=== PATIENT | male | born 2000 | race Caucasian/White ===

== ENCOUNTER 2022-07-18 14:29 | Emergency (ER) | payer OTHER, SELFPAY ==
--- NOTE | 2022-07-18 14:35 | ED.URI ---
HPI - URI/Sore Throat General Chief Complaint: Upper Respiratory Infection Stated Complaint: sinus pressure ears congestion Source: patient and RN notes reviewed History of Present Illness HPI Narrative: 22 yo M presents to urgent care with complaints of body aches, vomiting, cough, congestion, ear pain, and sore throat with coughing. Pt states he has been having these symptoms since Thursday. Pt states he is able to keep fluids down. Denies any diarrhea, chest pain, or abdominal pain. Reports SOB with exertion earlier in the week. Related Data Allergies Allergy/AdvReac Type Severity Reaction Status Date / Time No Known Allergies Allergy Unverified 07/18/22 14:54 Review of Systems Review of Systems: Pertinent positives and pertinent negatives per HPI. PMFSH Comments At the time of my signature, I reviewed and agree with the nursing past medical, surgical, social, and family history. There is no relevant family history pertinent to the patient complaint. Exam Narrative: GENERAL: This is a well-nourished, well-developed patient, in no apparent distress. HEAD: normocephalic, atraumatic. EYES: Sclera clear/white. Vision is grossly intact. EARS: External ears normal, auditory canals clear and without drainage, TMs normal without perforation. Hearing grossly intact. NOSE: External nose normal with no obvious nasal discharge, nares without redness, no rhinorrhea. THROAT: Mucous membranes moist, posterior pharynx erythremic. Tonsils 2+ bilaterally, no exudate. NECK: Neck supple, non-tender without lymphadenopathy, masses or thyromegaly. CARDIOVASCULAR: Regular rate and rhythm without murmurs, gallops, or rubs. RESPIRATORY: rhonchi and mild wheezing throughout. GASTROINTESTINAL: Abdomen soft, non-tender, nondistended. Bowel sounds are active. No hepato-splenomegaly, or palpable masses. No guarding. SKIN: pale NEURO: awake, alert, and oriented to person, place and time. There were no obvious focal neurologic abnormalities. Course Course Level of Care: Express Care Visit Vital Signs Vital signs: Vital Signs Temperature 98.9 F 07/18/22 14:45 Pulse Rate 80 07/18/22 14:45 Respiratory Rate 18 07/18/22 14:45 Blood Pressure 125/72 07/18/22 14:45 Pulse Oximetry 98 07/18/22 14:45 Oxygen Delivery Room Air 03/31/23 14:45 Temperature 98.9 F 07/18/22 14:45 Pulse Rate 80 07/18/22 14:45 Respiratory Rate 18 07/18/22 14:45 Blood Pressure 125/72 07/18/22 14:45 Pulse Oximetry 98 07/18/22 14:45 Oxygen Delivery Room Air 07/18/22 14:45 reviewed. MDM - URI/Sore Throat MDM Narrative Medical decision making narrative: After 24 hours on antibiotics throw tooth brush away and start using a new one. Increase your Vitamin C. Increase your Vitamin D by getting at least 15 minutes of sunlight every day. Do not share drinks. Take Motrin alternating with Tylenol for pain and/or fever alternating every 4 hours. Increase fluids, avoid caffeine. Take a probiotic daily or eat a low sugar yogurt while taking the antibiotic. Follow up with Primary provider if not getting better this week Differential Diagnosis Differential diagnosis: Likely upper respiratory infection, otitis media and pharyngitis Lab Data Attestation: I reviewed the patient's lab results. Critical Care Time Critical Care Time Critical Care Time: No Discharge Plan Discharge Clinical Impression: Pharyngitis Qualifiers: Pharyngitis/tonsillitis etiology: streptococcus Qualified Code(s): J02.0 - Streptococcal pharyngitis Patient Disposition: Home, Self-Care Condition: Stable Instructions: Antibiotic Form, Strep Throat (DC) Additional Instructions: After 24 hours on antibiotics throw tooth brush away and start using a new one. Increase your Vitamin C. Increase your Vitamin D by getting at least 15 minutes of sunlight every day. Do not share drinks. Take Motrin alternating with Tylenol for pain and/or fever alternating ever
[2022-07-18 14:45] VITALS: BP 125/72; PULSE 80; RESP 18; TEMP 37.2; O2SAT 98
== END 2022-07-18 15:25 | disposition home or self-care (01) ==
PROVIDERS: Emergency Provider Nurse Practitioner Family; PCP Emergency Medicine
DX: J02.0 Streptococcal pharyngitis (principal)
CPT/HCPCS: 87880; 99203; G0463

== ENCOUNTER 2023-03-02 16:51 | Emergency (ER) | payer OTHER, SELFPAY ==
[2023-03-02 17:05] VITALS: BP 113/68; PULSE 84; RESP 16; TEMP 37.3; O2SAT 99
--- NOTE | 2023-03-02 18:02 | ED.URI ---
HPI - URI/Sore Throat General Chief Complaint: Upper Respiratory Infection Stated Complaint: sore throat,stomach issue,congestion,tired Time Seen by Provider: 03/02/23 17:56 Source: patient and RN notes reviewed Mode of arrival: ambulatory Limitations: no limitations History of Present Illness HPI Narrative: Patient presents today complaining of sore throat, congestion, body aches, fatigue since last night. Denies fever. Reports after smoking some marijuana and eating upon my grand at he started feeling better today. He is currently pain-free. States he came in today because he needs a work note to return to work tomorrow. Related Data Allergies Allergy/AdvReac Type Severity Reaction Status Date / Time tree nut Allergy Unknown Unknown Unverified 03/02/23 17:29 Review of Systems Review of Systems: CONSTITUTIONAL: Denies fever, chills, or sweats.+ body aches, fatigue EYES: Denies visual changes, redness, or discharge. ENT: Denies rhinorrhea, or otalgia.+ sore throat, congestion CARDIOVASCULAR: Denies chest pain, palpitations, or edema. RESPIRATORY: Denies cough or dyspnea. GASTROINTESTINAL: Denies abdominal pain, nausea, vomiting, or diarrhea. GENITOURINARY: Denies dysuria or hematuria. SKIN: Denies rash, itching, or wounds. MUSCULOSKELETAL: Denies back pain, joint pain, or myalgia. NEUROLOGIC: Denies headache, numbness, tingling, or weakness. PSYCH: Denies depression or anxiety. PMFSH Comments At time of signature, I have reviewed and agree with nursing past medical, surgical, social and family history unless otherwise noted. Please see nursing chart for further information. There is no relevant family history pertinent to the presenting complaint Exam Narrative: GENERAL: Well-appearing, well-nourished, and in no acute distress. HEAD: Normocephalic, atraumatic. EYES: EOMI. No redness or drainage. Conjunctivae normal. ENT: Mucous membranes pink and moist. Nares clear. No rhinorrhea. TMs normal bilaterally. Throat normal. Uvula midline. NECK: Normal AROM. Supple. No lymphadenopathy. CHEST: No respiratory distress. Clear to auscultation. HEART: Regular rate and rhythm. No murmur appreciated. EXTREMITIES: Normal range of motion. No edema. SKIN: Warm, dry, no rash. Capillary refill normal. Normal skin turgor. NEURO: No focal deficits. Alert and oriented x3. Gait steady. PSYCH: Normal affect. No signs of depression or anxiety. Course Course Level of Care: Express Care Visit Vital Signs Vital signs: Vital Signs Temperature 99.1 F 03/02/23 17:05 Pulse Rate 84 03/02/23 17:05 Respiratory Rate 16 03/02/23 17:05 Blood Pressure 113/68 03/02/23 17:05 Pulse Oximetry 99 03/02/23 17:05 Oxygen Delivery Room Air 03/02/23 17:05 Temperature 99.1 F 03/02/23 17:05 Pulse Rate 84 03/02/23 17:05 Respiratory Rate 16 03/02/23 17:05 Blood Pressure 113/68 03/02/23 17:05 Pulse Oximetry 99 03/02/23 17:05 Oxygen Delivery Room Air 03/02/23 17:05 Reviewed MDM - URI/Sore Throat MDM Narrative Medical decision making narrative: Patient's symptoms are likely viral in etiology. Patient declines testing. Discussed [id number] treatment for symptoms. No prescription medications indicated at this time. Anticipatory guidance given. Differential Diagnosis Differential diagnosis: Likely upper respiratory infection, viral infection and pharyngitis Critical Care Time Critical Care Time Critical Care Time: No Discharge Plan Discharge Clinical Impression: Upper respiratory infection Qualifiers: URI type: unspecified URI Qualified Code(s): J06.9 - Acute upper respiratory infection, unspecified Patient Disposition: Home, Self-Care Condition: Stable Instructions: Upper Respiratory Infection (DC) Additional Instructions: Your symptoms are likely due to a viral illness, which is not treated with antibiotics. Virus symptoms can last for up to 7-10 days. Take Tyleno
== END 2023-03-02 18:15 | disposition home or self-care (01) ==
PROVIDERS: Emergency Provider Nurse Practitioner
DX: J06.9 Acute upper respiratory infection, unspecified (principal)
CPT/HCPCS: 99211; G0463

== ENCOUNTER 2024-12-05 15:30 | Emergency (ER) | payer OTHER, SELFPAY ==
[2024-12-05 15:40] VITALS: BP 147/84; PULSE 71; RESP 16; TEMP 36.7; O2SAT 99
--- NOTE | 2024-12-05 15:58 | ED_ITS ---
HPI - Skin/Abscess/Foreign Bdy General Chief complaint: Skin/Abscess/Foreign Body Stated complaint: body rash Time Seen by Provider: 12/05/24 15:45 Source: patient and RN notes reviewed Mode of arrival: ambulatory Limitations: no limitations History of Present Illness HPI narrative: 24-year-old male presents Express Care complaining of rash to his right elbow and chest the last 2 days. Patient says the rash started spontaneously. Patient denies any recent yd work or pain outside. Patient reports a pruritic rash started on his right elbow and has spread to his right lower arm and a throughout his chest and abdomen. Patient denies other symptoms. Patient has been Using hydrocortisone without any relief. Patient denies any pain. Related Data Allergies Allergy/AdvReac Type Severity Reaction Status Date / Time tree nut Allergy Unknown Unknown Unverified 03/02/23 17:29 Review of Systems Review of Systems: CONSTITUTIONAL: Denies fever, chills, or sweats. EYES: Denies visual changes, redness, or discharge. ENT: Denies rhinorrhea, congestion, sore throat, or otalgia. CARDIOVASCULAR: Denies chest pain, palpitations, or edema. RESPIRATORY: Denies cough or dyspnea. GASTROINTESTINAL: Denies abdominal pain, nausea, vomiting, or diarrhea. GENITOURINARY: Denies dysuria or hematuria. SKIN: Positive for rash and itching. MUSCULOSKELETAL: Denies back pain, joint pain, or myalgia. NEUROLOGIC: Denies headache, numbness, or weakness. PSYCHIATRIC: Denies anxiety or depression. All other systems reviewed are negative, except as documented in HPI. PMFSH Comments At the time of my signature, I reviewed and agree with the nursing past medical, surgical, social, and family history. There is no relevant family history pertinent to the patient complaint. Exam Narrative: GENERAL: This is a well-nourished, well-developed adult, in no apparent distress. They are non ill-appearing, nontoxic appearing. HEAD: normocephalic, atraumatic. EYES: Sclera clear/white. Conjunctiva normal. Vision is grossly intact. Extraocular movements intact EARS: External ears normal, Hearing grossly intact. NOSE: External nose normal THROAT: Mucous membranes moist, NECK: Neck supple, CARDIOVASCULAR: Regular rate and rhythm RESPIRATORY: Respiratory rate normal, respiratory effort nonlabored, no respiratory distress SKIN: Erythematous pruritic macular papular plaque-like rash scattered diffusely the patient's right anterior elbow, right distal anterior forearm and diffuse in the patient's chest abdomen. No area of fluctuance, no induration, no exudate. NEURO: awake, alert, and oriented to person, place and time. There were no obvious focal neurologic abnormalities. EXTREMITIES: No joint tenderness, effusion, or edema noted. Course Course Emergency Course: Portions of this record may have been created with voice recognition software Level of Care: Express Care Visit Vital Signs Vital signs: Vital Signs Temperature 98.1 F 12/05/24 15:40 Pulse Rate 71 12/05/24 15:40 Respiratory Rate 16 12/05/24 15:40 Blood Pressure 147/84 H 12/05/24 15:40 Pulse Oximetry 99 12/05/24 15:40 Oxygen Delivery Room Air 12/05/24 15:40 Temperature 98.1 F 12/05/24 15:40 Pulse Rate 71 12/05/24 15:40 Respiratory Rate 16 12/05/24 15:40 Blood Pressure 147/84 H 12/05/24 15:40 Pulse Oximetry 99 12/05/24 15:40 Oxygen Delivery Room Air 12/05/24 15:40 Reviewed MDM - Skin/Abscess/Foreign Bdy MDM Narrative Medical decision making narrative: Appears patient has dermatitis. Will treat with prednisone. Discussed physical exam findings. Advised supportive measures and signs/symptoms to go to the ER. Pt is appropriate for outpt treatment and f/u. Differential Diagnosis Differential diagnosis: Likely dermatophytosis, urticaria, eczema and contact dermatitis Critical Care Time Critical Care Time Critical Care Time: No Discharge Plan Discharge Clinical Impression: Rash Patient Disposition: Home Condition: Stable Instructions: Acute Rash (ED) Additional Instructions: Take the prednisone as directed. Take it in the morning and take it with food. You may use calamine lotion, camphor, hydrocortisone cream Benadryl cream as needed for itchiness symptoms, follow instructions on the bottle. You may also take Zyrtec or Claritin as needed for allergy who or itchiness symptoms, follow instructions on the. Follow-up PCP in 3-5 days. If you develop any worsening redness, swelling, discharge, fevers, breathing problems, or any other concerns please go to the ER immediately. Patient Language: Welsh Prescriptions: New prednisone 20 mg tablet 40 mg PO DAILY 5 Days Qty: 10 0RF Follow-up/Referrals: PHYSICIAN,SPARK PLUG TESTER [Primary Care Provider] - Time of Disposition: 15:53
--- OUTSIDE RECORDS SUMMARY | 2024-12-05 16:03 | XMS_ITS | Clinical Summary ---
Author Organization [facility] Address [address] [place] [address] Care Team Providers Care Licensed Audiologist Name Role Phone Errol De La Rosa MD Primary Care Provider [phone] Source Comments [facility],non-owned Affiliates and Associated Physician Practices is amultiple site organization consisting of ambulatory clinics and hospital sitesin [place], [place], [place] and [place]. This disclosure is being madepursuant to the Care Everywhere program and may not contain all information available regarding this patient. Last updated 18.[facility] Allergies No known active allergies Medications * Be aware that medications may not be up to date on this document. Alwaysverify current medications with the patient. multivitamin daily (THERAGRAN) tablet Take 1 Tab by mouth daily with food. Active melatonin 3 MG tablet Take 3 mg by mouth at bedtime. Active fluticasone-salmet abdirahman (ADVAIR DISKUS) 100-50 MCG/DOSE inhaler Inhale 1 Puff by mouth 2 times daily. Active montelukast (SINGULAIR) 10 MG tablet Take 10 mg by mouth at bedtime. Active omeprazole EC (PRILOSEC OTC) 20 MG tablet Take 1 Tab by mouth 2 times daily before meals. 60 Tab 5 04/27/19 13 Active Additional Information Patient not taking.Reported on 06/30/2017 albuterol HFA (PROVENTIL;VENTOLI N;PROAIR) 108 (90 BASE) MCG/ACT inhalerIndications :Exercise-Induced Bronchospastic Disease Inhale 2 Puffs by mouth every 6 hours as needed ReasonsExercise- Induced Bronchospasm Active cephALEXin (KEFLEX) 500 MG capsule Take 1,000 mg by mouth twice daily, before 1 meal & at bedtime. Active predniSONE (DELTASONE) 20 MG tablet Take 20 mg by mouth once daily Active naproxen (NAPROSYN) 500 MG tablet Take 1 tablet by mouth 2 times daily 120 tablet 07/02/19 18 Active Active Problems Problem Noted Date Diagnosed Date Closed displaced fracture of neck of fifth metacarpal bone of right hand 06/17/2016 Abdominal pain, generalized 04/27/2012 Vomiting 04/27/2012 Diarrhea 04/27/2012 Fracture, supracondylar, humerus, left, closed 0 07/04/2010 Foreign body in ear 07/12/2009 Overview (07/12/2009): Right 12/28/2006 Social History Tobacco Use Types Packs/Day Years Used Date Smoking Tobacco: Passive Smo ke Exposure - Never Smoker Smokeless Tobacco: Current Comments:Parents are both sm okers Alcohol Use Standard Drinks/Week Comments No 0 (1 standard drink = 0.6 oz pur e alcohol) Sex and Gender Information Value Date Recorded Sex Assigned at Not on file Legal Sex Male 5:40 AM [employer] LO[employer] Gender Identity Not on file Sexual Orientation Not on file Last Filed Vital Signs Vital Sign Reading Time Taken Comments Blood Pressure 126/82 07/01/2017 12:09 AM CDT Pulse 72 07/01/2017 12:09 AM CDT Temperature 36.7 C (98 F) 07/01/2017 12:09 AM CDT Respiratory Rate 22 07/01/2017 12:09 AM CDT Oxygen Saturation 97% 07/01/2017 12:09 AM CDT Inhaled Oxygen Concentration - - Weight 90 kg (198 lb 6.6 oz) 06/30/2017 9:14 PM CDT Height 180 cm (5' 10.87) 06/30/2017 9:14 PM CDT Body Mass Index 27.78 06/30/2017 9:14 PM CDT Plan of Treatment Health Maintenance Due Date Last Done Comments HIV SCREENING 2016 HPV VACCINE (1 - Male 3-dose series) 2016 MENINGOCOCCAL (Group B) VACC INE SHARED DECISION-MAKING (1 of 2 - Standard) 2017 HEPATITIS C SCREENING 04/03/2019 DTAP/TDAP/TD VACCINES (1 - Tdap) 2020 HEPATITIS B VACCINE (1 of 3 - 19+ 3-dose series) 2020 COVID-19 VACCINE (1 - 2023-2 5 season) 2023 DEPRESSION SCREENING 04/20/2024 INFLUENZA VACCINE (#1) 2024 ZOSTER VACCINE (1 of 2) 2051 HIB VACCINE Aged Out No longer eligi ble based on patient's age to complete this topic MENINGOCOCCAL GROUPS A/C/Y/W VACCINE Aged Out No longer eligible b ased on patient's age to complete this topic PNEUMOCOCCAL VACCINE Aged Out No long er eligible based on patient's age to complete this topic Insurance [facility] MEDICAID - OUT [facility] MEDICAID - [place] Care Teams Licensed Audiologist Relationship Specialty Start Date End Date Errol De La Rosa MD [address] [place] [address] [phone] PCP - General 07/04/10
--- OUTSIDE RECORDS SUMMARY | 2024-12-05 16:03 | XMS_ITS | Clinical Summary ---
Author Organization [facility] Address [address] [place] [address] Phone Care Team Providers Care Hris Specialist Name Role Phone Provider, None Primary Care Provider Unavailabl e Allergies No known active allergies Medications risperiDONE (RISPERDAL) 0.5 MG Tablet Take 0.5 mg by mouth nightly. 1 8 Active VENTOLIN HFA 108 (90 Base) MCG/ACT Aerosol Solution take 2 Puffs by inhalation as needed. 0 8 Active ondansetron (ZOFRAN-ODT) 4 MG TABLET DISPERSIBLE Take 1 Tab by mouth every 6 hours as needed for Nausea. 5 Tab 8 Active dicyclomine (BENTYL) 20 MG Tablet Take 1 Tablet by mouth every 6 hours. 20 Tablet 3 Active ondansetron (ZOFRAN-ODT) 4 MG TABLET DISPERSIBLE Take 1 Tablet by mouth every 8 hours as needed for Nausea - 1st line. 10 Tablet 3 Active Social History Tobacco Use Types Packs/Day Years Used Date Smoking Tobacco: Never Passive Smoke Exposure: Yes Smokeless Tobacco: Never Tobacco Cessation:Counseling Given: Not Answered Alcohol Use Standard Drinks/Week Comments No 0 (1 standard drink = 0.6 oz pur e alcohol) Sex and Gender Information Value Date Recorded Sex Assigned at Not on file Legal Sex Male 11:42 PM CDT Gender Identity Not on file Sexual Orientation Not on file Last Filed Vital Signs Vital Sign Reading Time Taken Comments Blood Pressure 153/100 12/30/2022 6:42 PM CDT Pulse 61 12/30/2022 6:42 PM CDT Temperature 36.8 C (98.2 F) 12/30/2022 6:42 PM CDT Respiratory Rate 22 12/30/2022 6:42 PM CDT Oxygen Saturation 100% 12/30/2022 6:42 PM CDT Inhaled Oxygen Concentration - - Weight 104.3 kg (230 lb) 12/30/2022 6:42 PM CDT Height 182.9 cm (6') 12/30/2022 6:42 PM CDT Body Mass Index 31.19 12/30/2022 6:42 PM CDT Plan of Treatment Health Maintenance Due Date Last Done Comments Hepatitis C Virus (HCV) Screening 2001 Meningococcal B Immunization (2 of 2 - Bexsero SCDM 2-dose series) 05/02/2018 10/30/2017 SARS-COV-2 Immunization ( season) 2023 Influenza Immunization (#1) 12/19/202402/19, 02/29/2016, 03/23/2014, Additional history exists Respiratory Syncytial Virus (RSV) Immunization (Adult) (1 - 1-dose 75+ series) 2076 Hepatitis B Immunization Completed 002, 2001, 2001 Measles Mumps Rubella (MMR) Immunization Discontinued 09/25/2005, 07/18/2002 Pneumococcal Immunization Combined Aged Out 09/25/2005, 2001, 2001 No longer eligible based on patient's age to complete this topic Polio (IPV) Immunization Discontinued 006, 07/18/2002, 2001, Additional history exists DTaP/Tdap/Td Immunization Discontinued 2011, 09/25/2005, 07/18/2002, Additional history exists TdaP Immunization Completed 12/03/2011 Hepatitis A Immunization Discontinued 11/15/2013, 11/2005 Varicella Immunization Discontinued 11/15/2013 Human Papillomavirus (HPV) Immunization Completed 12/13/2014, 03/23/2014, 11/15/2013 Meningococcal Immunization (ACWY) Completed 09/21/2017, 12/08/2012 Rotavirus Immunization Aged Out No lo nger eligible based on patient's age to complete this topic Insurance 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
== END 2024-12-05 15:57 | disposition home or self-care (01) ==
DX: R21 Rash and other nonspecific skin eruption (principal)
CPT/HCPCS: 99213; G0463